=== PATIENT | female | born 1965 | race Caucasian/White ===

== ENCOUNTER 2018-03-12 17:19 | Emergency (ER) | payer OTHER ==
[~2018-03-12] VITALS: Ht 154.9 cm; Wt 65.8 kg
[~2018-03-12 17:19] MED LIST: IBUPROFEN600 M1 PO; ORPHENADRINE C100 MG PO
[2018-03-12 18:02] VITALS: BP 167/93
== END 2018-03-12 19:48 | disposition admitted as inpatient to this hospital (09) ==
LOC: ERH 17:19
DX: R51 Headache (principal)